=== PATIENT | female | born 1975 | race Caucasian/White ===

== ENCOUNTER 2018-05-30 07:02 | Day surgery (SDC) | payer BC ==
[~2018-05-30 07:02] MED LIST: Acetaminophen TAB* 325 MG PO PRN; Buffered Lidocaine 1% SYRIN* 1 ML/SYRINGE INTRADERM ONE
[2018-05-30] MEDS ORDERED: fentaNYL* 50 MCG/ML 2 ML VIAL (100 MCG VIAL) ONE (07:58)
[2018-05-30] MEDS ORDERED: Midazolam* 1 MG/ML 5 ML VIAL (5 MG) ONE (07:58)
[2018-05-30 08:56] VITALS: BP 147/83
[2018-05-30] MEDS ORDERED: Lidocaine 1%* 5 ML VIAL ONE (09:05)
[2018-05-30] MEDS ORDERED: Ketorolac 0.5% OPHTH (NF) 0.5 % 5 ML BTL ONE (09:05)
[2018-05-30] MEDS ORDERED: Phenylephrine OPHTH SOL 2.5%* 2 ML ONE (09:05)
[2018-05-30] MEDS ORDERED: Neomycin/Polymy/Dex OPHTH.OIN* 3.5 GM ONE (09:05)
[2018-05-30] MEDS ORDERED: Tropicamide 1% OPTH.SOL* BTL ONE (09:05)
[2018-05-30] MEDS ORDERED: Tetracaine 0.5% OPTH.SOL 4 ML* 1 DROP BTL ONE (09:05)
[2018-05-30] MEDS ORDERED: Cyclopentolate 1% OPTH.SOL* 2 ML BTL ONE (09:05)
--- NOTE | 2018-05-30 11:28 | OP ---
DATE OF OPERATION: 05/30/18 [facility] DATE OF : 73 SURGEON: Dr. Casillas. INDUSTRIAL SERVICER: None. ANESTHESIA: Topical with intravenous sedation. PRE-OP DIAGNOSIS: Cataract with astigmatism, left eye. POST-OP DIAGNOSIS: Cataract with astigmatism, left eye. OPERATIVE PROCEDURE: Phacoemulsification and cataract extraction with posterior chamber toric intraocular lens implant, left eye. COMPLICATIONS: None. BLOOD LOSS: None. OPERATIVE FINDINGS: The patient was seen preoperatively in the holding area where a amairani was made at the 9-degree axis inferiorly in the limbus of the left eye while the patient was in an upright position. DESCRIPTION OF PROCEDURE: The patient was subsequently brought to the operating room and given intravenous sedation. A drop of tetracaine was placed in her left eye. The patient was prepped and draped in the usual sterile fashion for ophthalmic surgery. Attention was directed to the left eye where a speculum was placed. A paracentesis was created at the 5 o'clock position and 0.1 cc of 1% preservative-free lidocaine was injected into the anterior chamber followed by DisCoVisc. The eye was digitally stabilized while a 2.75 mm keratome was used to create triplanar clear corneal incision at the 3 o'clock position. A continuous curvilinear capsulorrhexis was created with a cystotome and Utrata forceps. BSS on a cannula was used to hydrodissect the lens in the capsule. Phacoemulsification was performed in a divide and conquer technique to create 4 fragments, which were removed. Residual cortical material was removed with irrigation and aspiration. A dense plaque located posteriorly and inferonasally was polished extensively. Despite this, there was still some plaque left. It was felt unsafe to continue to try and remove the plaque and that the posterior capsule might tear in the process. Thus, a small plaque was left with the possibility of doing a future YAG laser capsulotomy in the office. The capsule bag was inflated with Provisc. The eye pressure was measured with intraoperative tonometer. The surface of the eye was lubricated. The ORA instrument was employed to confirm the intraocular lens power. An [id number] diopter lens was folded and inserted into the capsular bag. It was dialed to the 91-degree axis as guided by ORA. The eye was stabilized with a Sinskey hook while irrigation and aspiration were performed to remove viscoelastic from the eye. BSS on a cannula was used to hydrate the corneal stroma and seal the wound. At the end of the case, the pupil was round. Lens was centered stable and axially aligned. The eye pressure appeared normal and the wound was watertight. The speculum was removed and topical Maxitrol ointment was placed on the surface of the eye. The eye was closed, patched, and shielded, and the patient was sent to the recovery room in stable condition with postoperative instructions and followup appointment given. [id number]/[facility] #: [id number] CHRISTOPHE
== END 2018-05-30 09:04 | disposition home or self-care (01) ==
LOC: OREAST 07:02
PROVIDERS: ATTEND Ophthalmology
DX: H25.042 Posterior subcapsular polar age-related cataract, left eye (principal); H52.202 Unspecified astigmatism, left eye; F41.9 Anxiety disorder, unspecified
CPT/HCPCS: A9270-GY; J2250; J3010; V2787